=== PATIENT | female | born 1975 | race Caucasian/White ===

== ENCOUNTER 2022-07-07 12:42 | Outpatient (CLI) | payer BC, SELFPAY ==
--- NOTE | 2022-07-07 13:00 | MR_ITS ---
[facility] [address] [facility] [address] Phone:?[phone] Fax:?[phone] Referring Physician Information: Dexter Ramirez M.D. [address] [facility] [address] Phone:?[phone] Fax:?[phone] Patient:Evelyn Marquez D.O.B:?1975 Sex:?Female Phone:?[phone] [facility] MRN:?[id number] Exam Date:?07/07/2022 ? EXAM: MRI of the RIGHT KNEE, without contrast CLINICAL: Right knee pain. Evaluate for meniscal tear. COMPARISONS: None available. TECHNICAL: MR sequences of the right knee: sagittals: PD, PDFS coronals: PD, T2FS axials: PD, PDFS SEDATION: None. CONTRAST: None. FINDINGS: Ligaments: ACL: Intact ACL anteromedial and posterolateral bundles, without sprain or tear. PCL: Intact PCL, without acute or chronic injury. MCL: Intact MCL superficial and deep layers, without injury. LCL: Intact LCL, without injury. Posterolateral corner: Popliteus, biceps femoris, iliotibial band, and the popliteofibular ligament appear intact. Posteromedial corner: Semimembranosus, pes anserine tendons and posterior oblique ligament appear intact. Extensor mechanism: Patellar tendon: Intact, without tendinopathy. Quadriceps tendon: Intact, without tendinopathy. Retinacula: Medial and lateral retinacula are intact. Fat pads: Unremarkable infrapatellar Hoffa's, quadriceps and prefemoral fat pads. Patellofemoral joint: Patella: High-grade chondral loss involves the patellar median ridge with mild underlying subchondral reactive cystic change. Trochlea: There is mild heterogeneity of the central trochlea cartilage, with deep chondral fissuring involving the central trochlea cartilage on sagittal series 6 image 15. Medial compartment: Medial meniscus: No evidence of discrete meniscal tear or meniscal displacement. Medial cartilage: No significant chondromalacia. Lateral compartment: Lateral meniscus: There is complex tearing involving the free edge of the body segment on coronal series 8 images 18-19. No meniscal displacement. Lateral cartilage: There is chondral heterogeneity and deep chondral delamination involving the superior posterior nonweightbearing lateral femoral condyle. Focal deep chondral fissuring involving the posterior lateral tibial plateau adjacent to the posterior horn lateral meniscus with trace underlying subchondral reactive edema. Knee joint: Effusion: Small right knee effusion. Intra-articular bodies:?No convincing bodies identified. Popliteal cyst: Small complex popliteal cyst with internal synovitis. Bones: No suspicious bone marrow signal alteration or fracture line. IMPRESSION: 1. Tearing involving the free edge of the body segment lateral meniscus. 2. 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 3. Small joint effusion and small popliteal cyst. 4. No evidence of meniscal tear, ligamentous injury or fracture. JCZ Electronically signed on 07/08/2022 7:12:00 AM by Rocky Groves D.O.
== END 2022-07-07 12:43 | disposition home or self-care (01) ==
LOC: MRI 12:43
PROVIDERS: PCP Internal Medicine; Visit Provider Internal Medicine
DX: M25.561 Pain in right knee (principal); S83.281A Other tear of lateral meniscus, current injury, right knee, initial encounter; M22.41 Chondromalacia patellae, right knee; M25.461 Effusion, right knee
CPT/HCPCS: 73721

== ENCOUNTER 2022-08-13 14:00 | Outpatient (CLI) | payer BC, SELFPAY ==
[2022-08-15 22:44] LABS: Rheumatoid Factor 39 IU/mL (0-14)
[2022-08-16 10:46] LABS: Anti-Nuclear Ab(ANA)IgG ELISA Detected (None Detected)
[2022-08-17 14:49] LABS: ANA Pattern Homogeneous; Antinuclear AntibodyHEp-2 Detected (<1:80)
== END 2022-08-13 14:01 | disposition home or self-care (01) ==
PROVIDERS: PCP Internal Medicine; Visit Provider Internal Medicine
DX: M25.50 Pain in unspecified joint (principal)
CPT/HCPCS: 86039; 86200; 86431

== ENCOUNTER 2022-10-20 10:58 | Outpatient (CLI) | payer BC, SELFPAY ==
[2022-10-20 15:03] LABS: Chloride* 107 mmol/L (96-114)
[2022-10-20 15:04] LABS: Albumin* 4.1 g/dL (3.3-5.0); Potassium* 3.8 mmol/L (3.6-5.1); Sodium* 138 mmol/L (135-149)
[2022-10-20 15:06] LABS: Creatinine* 0.5 mg/dL (0.5-1.5); Estimated Glomerular Filt Rate 116 ml/min
[2022-10-20 15:07] LABS: Alanine Aminotransferase* 37 U/L (4-35); Alkaline Phosphatase* 60 U/L (40-150); Aspartate Amino Transferase* 22 U/L (12-35); Bilirubin Total* 0.5 mg/dL (0.1-1.5); Blood Urea Nitrogen* 10 mg/dL (5-24); Calcium* 8.8 mg/dL (8.4-10.6); Carbon Dioxide* 26 mmol/L (20-32); Glucose* 126 mg/dL (60-115); Total Protein* 6.8 g/dL (6.0-8.3)
[2022-10-20 15:08] LABS: Magnesium* 2.3 mg/dL (1.5-2.6)
[2022-10-20 15:34] LABS: TSH With Reflex to FT4* 0.112 uIU/mL (0.270-4.200)
[2022-10-20 16:07] LABS: Free T4 Free Thyroxine* 1.18 ng/dL (0.70-1.85)
== END 2022-10-20 10:59 | disposition home or self-care (01) ==
PROVIDERS: PCP Internal Medicine; Visit Provider Internal Medicine
DX: M25.50 Pain in unspecified joint (principal); M06.9 Rheumatoid arthritis, unspecified
CPT/HCPCS: 80053; 83735; 84439; 84443

== ENCOUNTER 2023-12-22 10:34 | Outpatient (CLI) | payer BC, SELFPAY | END 2023-12-22 10:35 | disposition home or self-care (01) | LOC: NFLDREF 01-11 08:14 | PROVIDERS: PCP Internal Medicine; Referring Provider Internal Medicine; Visit Provider Internal Medicine | DX: D50.0 Iron deficiency anemia secondary to blood loss (chronic) (principal); E87.6 Hypokalemia; Z13.220 Encounter for screening for lipoid disorders | CPT/HCPCS: 80053; 80061 ==

== ENCOUNTER 2024-01-12 14:18 | Outpatient (CLI) | payer BC, SELFPAY ==
--- NOTE | 2024-01-12 14:40 | MM_ITS ---
Patient: MARCELLO WILLIAMSON Facility:?[facility] Patient ID:?[id number] Site Patient ID:?[id number]. Site :?1975 Study:?XRay-Breast Bilateral 3D W/CAD-01/12/2024 2:42:23 PM Ordering Physician:?Dexter Ramirez Final Report: BILATERAL SCREENING MAMMOGRAM WITH COMPUTER-AIDED DETECTION AND TOMOSYNTHESIS TECHNIQUE: CC and MLO views were obtained. These mammographic images have been obtained using full-field digital technique. These mammographic images were interpreted with the benefit of computer-aided detection. Breast Tomosynthesis was used in this interpretation. COMPARISON FILM: 10/10/19, 10/21/20, 11/13/21. FINDINGS: There are scattered areas of fibroglandular density IMPRESSION: There is no radiographic evidence for malignancy. ASSESSMENT: BI-RADS Category 1: Negative RECOMMENDATION: Routine screening mammogram in 1 year. A lay language report of this examination will be provided to the patient. Charli Rivas M.D. Diagnostic Radiologist [email or web address] QUYNH/ana maria Transcribed: 1:42 p.mRegla rodgers/Dictated by: Charli Rivas MD @ 01/13/2024 1:14:00 PM Signed by:?Charli Rivas MD @01/13/2024 1:50:10 PM (Electronic Signature)
== END 2024-01-12 14:19 | disposition home or self-care (01) ==
LOC: MAMMO 14:19
PROVIDERS: PCP Internal Medicine; Visit Provider Internal Medicine
DX: Z12.31 Encounter for screening mammogram for malignant neoplasm of breast (principal)
CPT/HCPCS: 77063; 77067

== ENCOUNTER 2024-01-18 07:55 | Outpatient (CLI) | payer BC, SELFPAY ==
--- NOTE | 2024-01-18 09:48 | W.ANESCHARGE ---
Anesthesia Charges Start Date/Time Anesthesia Start Date: 01/18/24 Anesthesia Start Time: 08:55 Stop Date/Time Anesthesia Stop Date: 01/18/24 Anesthesia Stop Time: 09:46
--- NOTE | 2024-01-18 11:31 | W.ANESCHARGE ---
Anesthesia Charges Start Date/Time Anesthesia Start Date: 01/18/24 Anesthesia Start Time: 08:55 Stop Date/Time Anesthesia Stop Date: 01/18/24 Anesthesia Stop Time: 09:46
== END 2024-01-18 07:56 | disposition home or self-care (01) ==
LOC: OP CLINIC 07:55
PROVIDERS: PCP Internal Medicine; Visit Provider Surgery
DX: Z12.11 Encounter for screening for malignant neoplasm of colon (principal); K63.5 Polyp of colon; K62.1 Rectal polyp
CPT/HCPCS: 00811; 45385; 88305; J2704

== ENCOUNTER 2025-02-14 15:12 | Outpatient (CLI) | payer BC, SELFPAY ==
--- NOTE | 2025-02-14 15:20 | CRLHL7_ITS ---
For Patients: As a result of the Century Cures Act, medical imaging exams and procedure reports are released immediately into your electronic medical record. You may view this report before your referring provider. If you have questions, please contact your health care provider. INDICATION: BILATERAL SCREENING MAMMOGRAM, ASYMPTOMATIC 49 Y/O FEMALE COMPARISON: 01/12/2024, 11/13/2021, 10/21/2020 TECHNIQUE: Digital mammogram in CC and MLO projections including computer-aided detection (CAD) and tomosynthesis. BREAST COMPOSITION: The breasts are almost entirely fatty. FINDINGS: No suspicious findings. ASSESSMENT: BI-RADS 1 Negative RECOMMENDATION: Annual screening mammogram. A lay language report of this examination will be provided to the patient. Dictated by: Charli Rivas MD @ 02/20/2025 12:35:35 (Electronically Signed)
== END 2025-02-14 15:13 | disposition home or self-care (01) ==
LOC: MAMMO 15:12
PROVIDERS: PCP Internal Medicine; Visit Provider Internal Medicine
DX: Z12.31 Encounter for screening mammogram for malignant neoplasm of breast (principal)
CPT/HCPCS: 77063; 77067

== ENCOUNTER 2025-04-18 13:38 | Outpatient (CLI) | payer BC, SELFPAY ==
--- NOTE | 2025-04-18 14:00 | CRLHL7_ITS ---
For Patients: As a result of the Century Cures Act, medical imaging exams and procedure reports are released immediately into your electronic medical record. You may view this report before your referring provider. If you have questions, please contact your health care provider. DXA BONE MINERAL DENSITY STUDY Reason for exam: Asymptomatic postmenopausal state. Current height (in): 67. Weight (lb): 225. Menopause age: 49. Ethnicity: White. 1. Have you had a previous hip or vertebral fracture? No. 2. Have you had any fractures during your adult life which did not result from significant trauma (e.g., auto accident)? No. 3. Did either of your parents have a hip fracture? No. 4. Do you smoke? No. 5. Have you ever taken Glucocorticoids? Yes. 6. Do you have rheumatoid arthritis? Yes. 7. Do you have secondary osteoporosis? No. 8. Do you drink 3 or more alcoholic drinks per day? No. 9. Are you being treated for osteoporosis? No. 10. Have you ever taken any of the following medications: Actonel, Evista, Fosamax, Miacalcin, Reclast, Boniva, Forteo, HRT (i.e. estrogen/hormone therapy), Protelos, Prolia, Vitamin D, Calcium, other ??? please specify. ANSWER: Yes, Calcium. 11. Do you have any of the following medical conditions: Anorexia or bulimia, asthma or emphysema, end stage renal disease, hyperparathyroidism, any seizure disorders, cancer, inflammatory bowel diseases, hysterectomy, other ??? please specify. ANSWER: Yes, hysterectomy. 12. What was your maximum height (inches)? 67. 13. Do you perform weight bearing exercise regularly? Yes. 14. Do you regularly consume dairy products? Yes. 15. Do you drink caffeinated beverages? Yes. 16. At what age did your period start? 11. 17. Are you premenopausal? No. 18. How many full term pregnancies have you had? 3. 19. Have you ever missed your period for more than 6 months in a row (not including or menopause)? Yes. TECHNIQUE: Bone mineral density study was performed using the [employer]. FINDINGS: The results of the study expressed as bone mineral density (BMD) are as follows: Lumbar spine L1 to L4: BMD: 1.080 g/cm2. T-score: 0.3. Z-score: 1.1. Neck Left: BMD: 0.835 g/cm2. T-score: -0.1. Z-score: 0.7. Right: BMD: 0.774 g/cm2. T-score: -0.7. Z-score: 0.1. Total Left: BMD: 1.002 g/cm2. T-score: 0.5 . Z-score: 1.0. Right: BMD: 0.938 g/cm2. T-score: -0.0. Z-score: 0.5. Left 33%: BMD: 0.628 g/cm2. T-score: -1.1. Z-score: -0.4. IMPRESSION: Osteopenia. *Comparison exams done prior to 02/2020 were performed on different unit, [employer]. Charli Rivas M.D. Diagnostic Radiologist [email or web address] SP/Dictated by: Charli Rivas MD @ 04/18/2025 3:40:00 PM (Electronically Signed)
== END 2025-04-18 13:39 | disposition home or self-care (01) ==
LOC: RAD 13:38
PROVIDERS: PCP Internal Medicine; Visit Provider Internal Medicine Rheumatology
DX: Z13.820 Encounter for screening for osteoporosis (principal); M85.89 Other specified disorders of bone density and structure, multiple sites; Z78.0 Asymptomatic menopausal state; Z79.52 Long term (current) use of systemic steroids
CPT/HCPCS: 77080